=== PATIENT | female | born 1990 | race Two or more races ===

== ENCOUNTER 2017-05-08 12:11 | Emergency (ER) | payer SELFPAY ==
[~2017-05-08] VITALS: Ht 165.1 cm; Wt 63.5 kg
[2017-05-08 12:31] VITALS: BP 121/68
[2017-05-08] MEDS ORDERED: Dexamethasone 4mg/ml vial IM ONE (13:00)
--- NOTE | 2017-05-08 13:18 | Emergency Room Report ---
History of Present Illness General Chief Complaint: General Complaint Source: Patient Present Illness HPI 27-year-old female presents to the emergency department complaining of sore throat, tonsillar swelling x 3 days, She also reports intermittent swelling of the lymph nodes on the right side of her neck x1 month. Patient reports subjective fevers and chills. Denies cough, neck pain, neck stiffness, headache or photophobia.night sweats, fatigue,loss of appetite or nausea. Pt reports recent course of amoxicillin earlier this month. She states that she just moved here from [place]. The pain is exacerbated upon swallowing . Denies CP, Palpitations, LOC, AMS, dizziness, Changes in Vision, Sensation, paresthesias, or a sudden severe headache. Allergies: Coded Allergies: No Known Allergies (Unverified , 05/08/17) Patient History Past Medical History: see triage record Past Surgical History: none Pertinent Family History: none Reviewed Nursing Documentation: PMH: Agreed, PSxH: Agreed Nursing Documentation-PMH Past Medical History: No Stated History Review of Systems All Other Systems: negative except mentioned in HPI Physical Exam Vital Signs Date Time Temp Pulse Resp B/P (MAP) Pulse Ox O2 Delivery O2 Flow Rate FiO2 05/08/17 12:21 98.2 105 20 121/68 99 Room Air Sp02 EP Interpretation: reviewed, normal General Appearance: alert, GCS 15, non-toxic, mild distress Head: normocephalic, atraumatic ENT: hearing grossly normal, normal voice, TMs + canals normal, uvula midline, tonsillar swelling, pharyngeal erythema, tonsillar exudate Neck: full range of motion, no meningismus Respiratory: lungs clear, normal breath sounds, speaking full sentences Cardiovascular #1: regular rate, rhythm Gastrointestinal: non tender, soft Rectal: deferred Genitourinary: normal inspection Musculoskeletal: back normal, gait/station normal, normal range of motion, non- tender Neurologic: alert, oriented x3, responsive, motor strength/tone normal, sensory intact, speech normal Skin: normal color, no rash, warm/dry, well hydrated Lymphatic: other - subparotid and anterior cervical LAD bilaterally Medical Decision Making PA Attestation Dr. Grider is my supervising Physician whom patient management has been discussed with. Diagnostic Impression: Primary Impression: Acute tonsillitis Qualified Codes: J03.90 - Acute tonsillitis, unspecified ER Course 27-year-old female presents to the emergency department complaining of sore throat, tonsillar swelling x 3 days, She also reports intermittent swelling of the lymph nodes on the right side of her neck x1 month. Patient reports subjective fevers and chills. Denies cough, neck pain, neck stiffness, headache or photophobia.night sweats, fatigue,loss of appetite or nausea. Pt reports recent course of amoxicillin earlier this month. She states that she just moved here from [place]. The pain is exacerbated upon swallowing . Denies CP, Palpitations, LOC, AMS, dizziness, Changes in Vision, Sensation, paresthesias, or a sudden severe headache. Ddx considered but are not limited to: pharyngitis, strep, [employer], ludwigs angina, URI Vital signs: are WNL, pt. is afebrile. H&PE are most consistent with: pharyngitis presumed strep. ORDERS: None required at this time as the diagnosis is clinical ED INTERVENTIONS: -Decadron 8mg IM. DISCHARGE: At this time pt. is stable for d/c to home. Will provide printed patient care instructions, and any necessary prescriptions. Care plan and follow up instructions have been discussed with the patient prior to discharge. Last Vital Signs Date Time Temp Pulse Resp B/P (MAP) Pulse Ox O2 Delivery O2 Flow Rate FiO2 05/08/17 12:21 98.2 105 20 121/68 99 Room Air Disposition: HOME, SELF-CARE Condition: Stable Scripts Lidocaine HCl 2% Viscous (Lidocaine HCl 2% Viscous) 100 Ml Solution 15 ML ORAL QID, #120 ML Prov: Minnie Serrano P.A. 05/08/17 Ibuprofen* (MOTRIN*) 600 Mg Tablet 600 MG ORAL THREE TIMES A DAY, #20 TAB 0 Refills Prov: Minnie Serrano P.A. 05/08/17 Azithromycin* (ZITHROMAX*) 250 Mg Tablet 500 MG ORAL ONCE for 5 Days, #10 TAB 0 Refills Prov: Minnie Serrano P.A. 05/08/17 Patient Instructions: Pharyngitis, [id number] Additional Instructions: Take medications as directed. Follow up with a Primary Care Provider in 3-5 days, even if your symptoms have resolved. --Please review list of primary care clinics, if you do not already have a primary care provider Return sooner to ED if new symptoms occur, or current symptoms become worse. - Please note that this Emergency Department Report was dictated using [employer] motor engineer technology software, occasionally this can lead to erroneous entry secondary to interpretation by the dictation equipment. Minnie Serrano May 08, 2017 13:18
[2017-05-08] MEDS ORDERED: AZITHROMYCIN250 MG ORAL (13:20)
[2017-05-08] MEDS ORDERED: LIDOCAINE VISC100 ML ORAL (13:20)
[2017-05-08] MEDS ORDERED: IBUPROFEN600 MG ORAL (13:20)
[2017-05-08 13:36] VITALS: BP 119/71
== END 2017-05-08 13:38 | disposition home or self-care (01) ==
LOC: EMR 13:00
DX: J03.90 Acute tonsillitis, unspecified (principal); J02.9 Acute pharyngitis, unspecified
CPT/HCPCS: 96372; 99284; J1100

== ENCOUNTER 2018-03-25 15:09 | Emergency (ER) | payer MEDICAID ==
[~2018-03-25] VITALS: Ht 165.1 cm; Wt 63.5 kg
[~2018-03-25 15:09] MED LIST: AZITHROMYCIN250 MG ORAL; IBUPROFEN600 MG ORAL; LIDOCAINE VISC100 ML ORAL
--- NOTE | 2018-03-25 15:59 | Emergency Room Report ---
History of Present Illness General Chief Complaint: General Complaint Source: Patient Present Illness HPI 28-year-old female patient presents ER complaining of left knee pain and requesting psychology consult. Patient reports that left knee has been hurting for the past few days. Patient reports that she has been working out more frequently recently and began to experience knee pain. Reports able ambulate. Denies any medications. Also reports that she speaks psychologist, states that she is being bullied at school. Denies thoughts of hurting herself or others. Denies history of depression. denies fever, chest pain, shortness of breath, abdominal pain. Allergies: Coded Allergies: No Known Allergies (Unverified , 05/08/17) Patient History Past Medical History: see triage record Last Menstrual Period: 03-06 Now: No Reviewed Nursing Documentation: PMH: Agreed; PSxH: Agreed Nursing Documentation-PMH Past Medical History: No History, Except For History Of Psychiatric Problem: Yes Review of Systems All Other Systems: negative except mentioned in HPI Physical Exam Vital Signs Date Time Temp Pulse Resp B/P (MAP) Pulse Ox O2 Delivery O2 Flow Rate FiO2 03/25/18 15:26 98.4 85 18 117/78 98 Room Air Sp02 EP Interpretation: reviewed, normal General Appearance: well appearing, no apparent distress, alert, GCS 15, non- toxic Head: normocephalic, atraumatic Eyes: bilateral eye normal inspection, bilateral eye PERRL ENT: hearing grossly normal, normal pharynx, no angioedema, normal voice, uvula midline, moist mucus membranes Neck: full range of motion Respiratory: lungs clear, normal breath sounds, no rhonchi, no respiratory distress, no accessory muscle use, no wheezing, speaking full sentences Cardiovascular #1: regular rate, rhythm, no edema Cardiovascular #2: 2+ dorsalis pedis (R), 2+ dorsalis pedis (L) Musculoskeletal: back normal, digits/nails normal, gait/station normal, normal range of motion, non-tender, other - NVI, no laxity with varus or valgus stress Neurologic: alert, oriented x3, responsive, motor strength/tone normal, sensory intact Psychiatric: mood/affect normal, no suicidal/homicidal ideation Skin: no rash Medical Decision Making PA Attestation Dr. Dang is my supervising Physician whom patient management has been discussed with. Diagnostic Impression: Primary Impression: Knee sprain Additional Impression: Feeling of sadness ER Course Pt. presents to the ED c/o left knee pain and requesting to speak with mental health professional. Ddx considered but are not limited to fracture, sprain, strain, contusion, dislocation, anxiety, depression, stress. No erythema, no warmth to touch, no fever, nontoxic appearing, low suspicion for septic joint. Soft compartments, no pulselessness, no pallor, no paresthesias, low suspicion for compartment syndrome at this time. Vital signs: are WNL, pt. is afebrile Ordered X-ray and pain medication. ER COURSE informed patient that we do not on-site psychiatric facilities, provided patient patient with referral to mental health urgent care and psychiatric facilities. Advised patient to followup with mental health urgent care or PCP to discuss further treatment and referral. Provided with contact information for PCP. denies suicidal or homicidal ideation, do not believe patient is a danger to herself or others at this time, okay for discharge and close outpatient follow- up. ER precautions given. Provided with pain medication. An X-ray of the left knee shows no acute disease. likely sprain from overuse. Patient follow with primary care doctor, discuss need for MRI. JAMAL wrap applied to left knee and was checked afterwards by me showing good alignment and support with distal neurovascular functioning intact. Crutches declined. Patient instructed on RICE method: rest, ice, compression, elevation. Patient instructed on rest, ice and heat. Patient instructed to be WBAT Contact information for orthopedic urgent care provided, follow-up with urgent care if unable to followup with primary care provider and get referral to diagnostic sales specialist. Followup with primary care provider. Discuss referral to ortho/pain management/ PT as needed. Discuss further imaging with MRI/CT as needed. DISCHARGE: -Rx provided for Tylenol for pain symptoms. At this time pt. is stable for d/c to home. Patient is resting comfortably, in no acute distress, nontoxic appearing, talking without difficulty. Will provide printed patient care instructions, and any necessary prescriptions. Patient instructed to follow with primary care provider in 3 - 5 days and to request further follow-up as needed. Care plan and follow up instructions have been discussed with the patient prior to discharge. Take medications as directed. Patient questions asked and answered. Patient reports understanding and agreement to treatment plan. ER precautions given, patient instructed to return to ER immediately for any new or worsening of symptoms. - Please note that this Emergency Department Report was dictated using [employer] repairman technology software, occasionally this can lead to erroneous entry secondary to interpretation by the dictation equipment. Other X-Ray Diagnostic Results Other X-Ray Diagnostic Results : X-Ray ordered: left knee # of Views/Limited Vs Complete: 3 View Indication: Pain EP Interpretation: Yes PA Xray: Interpretation reviewed, by supervising MD, and agrees with findings. Interpretation: no dislocation, no soft tissue swelling, no fractures Impression: No acute disease PA Scribe Text Jon Felder PA-C Last Vital Signs Date Time Temp Pulse Resp B/P (MAP) Pulse Ox O2 Delivery O2 Flow Rate FiO2 03/25/18 15:26 98.4 85 18 117/78 98 Room Air Status: improved Disposition: HOME, SELF-CARE Condition: Stable Scripts Acetaminophen* (TYLENOL EXTRA STRENGTH*) 500 Mg Tablet 500 MG ORAL Q8H PRN for Prn Headache/Temp > 101, #30 TAB 0 Refills Prov: Pete Felder 03/25/18 Patient Instructions: Knee Pain, [id number] Additional Instructions: Follow-up with mental health professional/urgent care.Followup with PCP. Call to schedule appointment. Patient instructed to follow up with primary care provider and discuss further referral to orthopedics/physical therapy/pain management as needed. Discuss MRI. If unable to followup with PCP, followup with orthopedic urgent care in 5-7 days , call to schedule appointment. Patient instructed on RICE method: rest, ice, compression, elevation. Patient instructed to WBAT. Take medications as directed. Patient questions asked and answered. ER precautions given, patient instructed to return to ER immediately for any new or worsening of symptoms. [facility] [address] [facility] [address] [facility], [address] [email or web address] Pete Felder Mar 25, 2018 15:59
[2018-03-25] MEDS ORDERED: Methocarbamol 500mg tab ORAL ONE (16:00)
[2018-03-25] MEDS ORDERED: Acetaminophen 500mg (ES) tab ORAL ONE (16:00)
[2018-03-25] MEDS ORDERED: TYLENOL EXTRA500 MG ORAL (16:45)
--- NOTE | 2018-03-25 17:03 | Diagnostic Imaging Report ---
Indications: Reason For Exam: PAIN Technique: Three views of the left knee Comparison: None Findings: No acute fractures. No dislocations. Joint spaces are preserved. No radiopaque foreign body. Normal mineralization. Impression: No acute process
[2018-03-25 17:18] VITALS: BP 117/78
[2018-03-25 17:20] VITALS: BP 117/78
== END 2018-03-25 17:21 | disposition home or self-care (01) ==
LOC: EMR 15:58
DX: S83.92XA Sprain of unspecified site of left knee, initial encounter (principal); X50.9XXA Other and unspecified overexertion or strenuous movements or postures, initial encounter; Y92.9 Unspecified place or not applicable; F60.89 Other specific personality disorders
CPT/HCPCS: 99284

== ENCOUNTER 2018-03-31 15:10 | Emergency (ER) | payer MEDICAID ==
[~2018-03-31] VITALS: Ht 165.1 cm; Wt 63.5 kg
[~2018-03-31 15:10] MED LIST changes: +TYLENOL EXTRA500 MG ORAL
[2018-03-31] MEDS ORDERED: NKM (15:21)
[2018-03-31 15:30] VITALS: BP 104/72
--- NOTE | 2018-03-31 15:44 | Emergency Room Report ---
History of Present Illness General Chief Complaint: Pain Source: Patient Present Illness HPI 28-year-old female patient presents ER complaining of left knee pain. Also requesting referral to therapist. Patient seen here one week ago for similar symptoms. States since that time followed up with mental urgent cares and states "they are at a level 5, I am not at that level". Requesting referral to therapist. States she does not have primary care provider that she followed up with, did not follow up with specialists or orthopedic urgent care as previously written instructed. states she has wrapped her knee, states has been taking ibuprofen but it is not helping, states has not elevated or I sternotomy. Denies recent injury or trauma. Reports has been resting since previous visit. Denies fever, chest pain, shortness of breath. Denies erythema or swelling of knee. Reports able ambulate without difficulty. Allergies: Coded Allergies: No Known Allergies (Unverified , 03/31/18) Patient History Past Medical History: see triage record Last Menstrual Period: 03/06/18 Now: No Reviewed Nursing Documentation: PMH: Agreed; PSxH: Agreed Nursing Documentation-PMH Past Medical History: No Stated History Review of Systems All Other Systems: negative except mentioned in HPI Physical Exam Vital Signs Date Time Temp Pulse Resp B/P (MAP) Pulse Ox O2 Delivery O2 Flow Rate FiO2 03/31/18 15:15 97.5 69 16 104/72 100 Room Air Sp02 EP Interpretation: reviewed, normal General Appearance: well appearing, no apparent distress, alert, GCS 15, non- toxic Head: normocephalic, atraumatic Eyes: bilateral eye normal inspection, bilateral eye PERRL ENT: hearing grossly normal, normal pharynx, no angioedema, normal voice, uvula midline, moist mucus membranes Neck: full range of motion Respiratory: lungs clear, normal breath sounds, no rhonchi, no respiratory distress, no accessory muscle use, no wheezing, speaking full sentences Cardiovascular #1: regular rate, rhythm, no edema Musculoskeletal: back normal, digits/nails normal, gait/station normal, normal range of motion, non-tender, other - NVI, no erythema, no swelling, no ecchymosis Neurologic: alert, oriented x3, responsive, motor strength/tone normal, sensory intact Psychiatric: mood/affect normal Skin: no rash Medical Decision Making PA Attestation Dr. Cox is my supervising Physician whom patient management has been discussed with. Diagnostic Impression: Primary Impression: Knee pain, left ER Course Pt. presents to the ED c/o left knee pain and requesting referral to mental health services. Ddx considered but are not limited to anxiety, stress, depression, bowling, sprain, strain, chronic pain, gout, septic joint, DVT. Vital signs: are WNL, pt. is afebrile ER COURSE: Physical exam benign, negative Lisandro sign, no calf pain, low suspicion for DVT. No erythema, no edema, no warmth to touch, nontoxic appearing, low suspicion for septic joint. denies recent injury or trauma, will not order repeat imaging at this time, imaging from previous visit reviewed, negative. Informed patient to follow-up with PCP or orthopedic urgent care. Discussed need for MRI imaging w/ PCP. Take Tylenol for pain symptoms. Advised on RICE: rest, ice, compression, elevation. Provide patient with contact information for PCP. Informed patient to discuss referral to mental health therapy services with follow-up at PCP. Patient reports understanding and agreement. ER precautions given. do not believe patient is a danger to herself or others at this time, denies suicidal or homicidal ideation. Okay for outpatient follow-up and treatment. DISCHARGE: At this time pt is stable for d/c to home. Patient is resting comfortably, in no acute distress, nontoxic appearing, talking without difficulty. Patient to take medications as instructed Will provide with patient care instructions and any necessary prescriptions. Care plan and follow-up instructions provided. Patient instructed to follow-up with primary care provider in 3 - 5 days. Patient questions asked and answered. Patient reports understanding and agreement to treatment plan. ER precautions given. Patient instructed to return to ER immediately for any new or worsening of symptoms including but not limited to increasing SOB, persistent fever, chest pain, intractable vomiting. - Please note that this Emergency Department Report was dictated using [employer] care staffer technology software, occasionally this can lead to erroneous entry secondary to interpretation by the dictation equipment. Last Vital Signs Date Time Temp Pulse Resp B/P (MAP) Pulse Ox O2 Delivery O2 Flow Rate FiO2 03/31/18 15:15 97.5 69 16 104/72 100 Room Air Disposition: HOME, SELF-CARE Condition: Stable Referrals: NOT CHOSEN IPA/MD,REFERRING (PCP) Patient Instructions: Knee Pain, [id number] Additional Instructions: Follow-up with PCP and discuss referral to therapy, mental health professional, psychiatrist, psychologist. Patient instructed to follow up with primary care provider and discuss further referral to orthopedics/physical therapy/pain management as needed. If unable to followup with PCP, followup with orthopedic urgent care in 5-7 days , call to schedule appointment. Patient instructed on RICE method: rest, ice, compression, elevation. Patient instructed to WBAT. Take medications as directed. Patient questions asked and answered. ER precautions given, patient instructed to return to ER immediately for any new or worsening of symptoms. [facility] [address] [facility] [address] [facility], [id number] [email or web address] Pete Felder Mar 31, 2018 15:44
[2018-03-31 15:48] VITALS: BP 104/72
== END 2018-03-31 15:48 | disposition home or self-care (01) ==
LOC: EMR 15:33
DX: M25.562 Pain in left knee (principal)
CPT/HCPCS: 99282